=== PATIENT | female | born 1990 | race Caucasian/White ===

== ENCOUNTER 2016-11-26 22:01 | Emergency (ER) | payer BC ==
[~2016-11-26] VITALS: Ht 157.5 cm; Wt 68.0 kg
[2016-11-26] MEDS ORDERED: ONDANSETRON HCL 4 MG TABLET PO ONE (22:15)
[2016-11-26] MEDS ORDERED: MORPHINE SULFATE 2 MG/1 ML DISP.SYRIN IM ONE (22:15)
[2016-11-26] MEDS ORDERED: MORPHINE SULFATE 4 MG/1 ML DISP.SYRIN ONE (22:29)
[2016-11-26] MEDS ORDERED: ONDANSETRON ODT 4 MG TAB.RAPDIS ONE (22:29)
--- NOTE | 2016-11-26 23:02 | NUR ---
Patient discharged to home in stable conditon. Written and verbal after care instructions given. Patient verbalizes understanding of instructions.
== END 2016-11-26 23:03 | disposition home or self-care (01) ==
LOC: ER 22:07
DX: S50.12XA Contusion of left forearm, initial encounter (principal); S20.219A Contusion of unspecified front wall of thorax, initial encounter; S70.311A Abrasion, right thigh, initial encounter; F10.20 Alcohol dependence, uncomplicated; V19.9XXA Pedal cyclist (driver) (passenger) injured in unspecified traffic accident, initial encounter; Y93.89 Activity, other specified; Y99.8 Other external cause status; Y92.89 Other specified places as the place of occurrence of the external cause
CPT/HCPCS: 73090; A4663; J2270; Q0162